=== PATIENT | female | born 1980 | race Hispanic/Latino ===

== ENCOUNTER 2022-05-14 00:10 | Emergency (ER) | payer SELFPAY | END 2022-05-14 01:15 | disposition left against medical advice (07) | LOC: ERS 00:10 | DX: Z53.21 Procedure and treatment not carried out due to patient leaving prior to being seen by health care provider (principal) ==

== ENCOUNTER 2023-02-07 10:33 | Outpatient (CLI) | payer OTHER | END 2023-02-07 10:34 | disposition home or self-care (01) | LOC: BICULT 10:33 | DX: K40.90 Unilateral inguinal hernia, without obstruction or gangrene, not specified as recurrent (principal); R59.0 Localized enlarged lymph nodes | CPT/HCPCS: 76705 ==